=== PATIENT | female | born 1960 | race Caucasian/White ===

== ENCOUNTER 2017-12-31 08:55 | Observation (INO) ==
[2017-12-31] MEDS ORDERED: Morphine Inj 4 MG/ML Vial IV.PUSH ONE (09:39)
[2017-12-31 09:52] LABS: Baso # (Auto) 0.1 th/mm3 (0.0-0.2); Eos # (Auto) 0.5 th/mm3 (0.0-0.4); Eos % (Auto) 4.9 % (0.0-4.0); Hematocrit 45.3 % (35.0-46.0); Hemoglobin 15.3 gm/dL (11.6-15.3); Lymph # (Auto) 1.6 th/mm3 (1.0-4.8); Lymph % (Auto) 15.3 % (9.0-44.0); Mean Corpuscular HGB Conc 33.9 % (32.0-36.0); Mean Corpuscular Hemoglobin 29.7 pg (27.0-34.0); Mean Corpuscular Volume 87.6 fL (80.0-100.0); Mean Platelet Volume 8.4 fL (7.0-11.0); Mono # (Auto) 0.6 th/mm3 (0.0-0.9); Mono % (Auto) 5.6 % (0.0-8.0); Neut # (Auto) 7.8 th/mm3 (1.8-7.7); Neut % (Auto) 73.2 % (16.0-70.0); Platelet Count 362 th/mm3 (150-450); Red Blood Count 5.17 mil/mm3 (4.00-5.30); Red Cell Distribution Width 12.4 % (11.6-17.2); White Blood Count 10.6 th/mm3 (4.0-11.0)
[2017-12-31 10:02] LABS: Chloride 105 meq/L (98-107); Potassium 4.3 meq/L (3.5-5.1); Sodium 142 meq/L (136-145)
[2017-12-31 10:06] LABS: Activated Partial Thrombo Time 27.1 sec (24.3-30.1); Calcium 9.1 mg/dL (8.5-10.1)
--- NOTE | 2017-12-31 10:06 | ED ---
HPI General Chief Complaint: Chest Pain Stated Complaint: chest pain Time Seen by Provider: 12/31/17 09:13 Source: patient Mode of arrival: ambulatory Limitations: no limitations History of Present Illness HPI narrative: She was in complaining of left shoulder humerus region pain radiating towards her left neck. Onset of the symptoms approximately 2 hours ago. MD complaint: chest pain STEMI Alert: No Onset (ago): hour(s) (2) Duration: intermittent Onset: during rest Severity: moderate Severity scale (1-10): 5 Quality: heaviness Pain radiation: none Relieving factors: nothing Exacerbating factors: nothing Context: recent illness Related Data Home Medications Medication Instructions Recorded Confirmed atorvastatin 40 mg PO HS 12/20/17 12/31/17 citalopram 20 mg PO DAILY 12/20/17 12/31/17 lisinopril 10 mg PO DAILY 12/20/17 12/31/17 metformin 500 mg PO BID 12/20/17 12/31/17 [id number]-[id number]-GP-lycopen-lutein 1 tab PO DAILY 12/20/17 12/31/17 [Centrum Silver] omeprazole 20 mg PO DAILY PRN 12/20/17 12/31/17 tramadol 50 mg PO Q6H PRN 12/20/17 12/31/17 Previous Rx's Medication Instructions Recorded atenolol 25 mg PO BID #30 tab 12/20/17 Allergies Allergy/AdvReac Type Severity Reaction Status Date / Time penicillin G Allergy Intermediate HIVES Verified 12/20/17 20:49 Review of Systems ROS: all other systems reviewed are negative PMFSH History History Provided By: Patient Medical History Medical History Depression (Acute) GERD (gastroesophageal reflux disease) (Acute) H/O psoriasis (Acute) Hyperlipidemia (Acute) Hypertension (Acute) Supraventricular tachycardia (Acute) Surgical History Surgical History Abdominal mass (Acute) Nonfunctioning salivary gland (Acute) Family History Family History Father Cardiovascular disease Social History Social History Substance History: No History of Abuse Second Hand Smoke Exposure: No Smoking Status: Current every day smoker Tobacco Type: Cigarettes How Often Do You Have a Drink Containing Alcohol: 4 or more times a week Recent Travel in [facility] within the Last 8 Weeks: No Recent Out of Country Travel within the Last 8 Weeks: No Immunization History Tetanus Immunization: Unsure Hx Influenza Vaccine This Season: No Exam Narrative Exam Narrative: GENERAL: Well-nourished, well-developed patient in no apparent distress. SKIN: Warm and dry. HEAD: Atraumatic. Normocephalic. EYES: Pupils equal and round. No scleral icterus. No injection or drainage. ENT: No nasal bleeding or discharge. Mucous membranes pink and moist. NECK: Trachea midline. No JVD. CARDIOVASCULAR: Regular rate and rhythm. no rubs or gallops RESPIRATORY: No accessory muscle use. Clear to auscultation. Breath sounds equal bilaterally. GASTROINTESTINAL: Abdomen soft, non-tender, nondistended. No rebound or guarding MUSCULOSKELETAL: Extremities without clubbing, cyanosis, or edema. No obvious deformities. NEUROLOGICAL: Awake and alert. No obvious cranial nerve deficits. Motor grossly within normal limits. Five out of 5 muscle strength in the arms and legs. Normal speech. PSYCHIATRIC: Appropriate mood and affect; insight and judgment normal. Course Initial Documented Vital Signs Temperature 98.5 F 12/31/17 09:09 Pulse Rate 66 12/31/17 09:09 Respiratory Rate 18 12/31/17 09:09 Blood Pressure 167/92 H 12/31/17 09:09 Pulse Oximetry 94 L 12/31/17 09:09 Last Documented Vital Signs Temperature 97.9 F 01/01/18 12:00 Pulse Rate 64 01/01/18 18:15 Respiratory Rate 18 01/01/18 18:15 Blood Pressure 177/94 H 01/01/18 18:15 Pulse Oximetry 96 01/01/18 18:15 Medical Decision Making [facility] Narrative Medical Screen Exam Complete: Yes Emergency Medical Condition: Yes Differential Diagnosis Differential Diagnosis: Atypical NM versus pneumonia versus pneumothorax versus pulmonary embolus versus pericardial effusion Medical Records Medical records reviewed: Yes I reviewed the patient's medical records. Lab Data Result diagrams: 12/31/17 09:45 01/01/18 06:00 Lab Results 12/31/17 12/31/17 12/31/17 Range/Units 09:45 09:45 09:45 CBC w Diff Auto diff final WBC 10.6 (4.0-11.0) th/mm3 RBC 5.17 (4.00-5.30) mil/mm3 Hgb 15.3 (11.6-15.3) gm/dL Hct 45.3 (35.0-46.0) % MCV 87.6 (80.0-100.0) fL MCH 29.7 (27.0-34.0) pg MCHC 33.9 (32.0-36.0) % RDW 12.4 (11.6-17.2) % Plt Count 362 (150-450) th/mm3 MPV 8.4 (7.0-11.0) fL Neut % (Auto) 73.2 H (16.0-70.0) % Lymph % (Auto) 15.3 (9.0-44.0) % [place] % (Auto) 5.6 (0.0-8.0) % Eos % (Auto) 4.9 H (0.0-4.0) % Baso % (Auto) 1.0 (0.0-2.0) % Neut # (Auto) 7.8 H (1.8-7.7) th/mm3 Lymph # (Auto) 1.6 (1.0-4.8) th/mm3 [place] # (Auto) 0.6 (0.0-0.9) th/mm3 Eos # (Auto) 0.5 H (0.0-0.4) th/mm3 Baso # (Auto) 0.1 (0.0-0.2) th/mm3 WBC Differential . Differential Comment . PT 10.0 (9.8-11.6) sec INR 1.0 Ratio APTT 27.1 (24.3-30.1) sec Sodium (136-145) meq/L Potassium (3.5-5.1) meq/L Chloride (98-107) meq/L Carbon Dioxide (21.0-32.0) meq/L Anion Gap (5-15) meq/L BUN (7-18) mg/dL Creatinine (0.50-1.00) mg/dL Estimated GFR (>89) mL/min POC Glucose (68-110) mg/dl Random Glucose (74-106) mg/dL Calcium (8.5-10.1) mg/dL Total Bilirubin (0.2-1.0) mg/dL AST (15-37) U/L ALT (10-53) U/L Alkaline Phosphatase (45-117) U/L Total Creatine Kinase (26-192) U/L CK-MB (CK-2) (0.5-3.6) ng/mL Troponin I (0.02-0.05) ng/mL B-Natriuretic Peptide 105 H (0-100) pg/mL Total Protein (6.4-8.2) g/dL Albumin (3.4-5.0) g/dL 12/31/17 12/31/17 12/31/17 Range/Units 09:45 12:57 13:00 CBC w Diff WBC (4.0-11.0) th/mm3 RBC (4.00-5.30) mil/mm3 Hgb (11.6-15.3) gm/dL Hct (35.0-46.0) % MCV (80.0-100.0) fL MCH (27.0-34.0) pg MCHC (32.0-36.0) % RDW (11.6-17.2) % Plt Count (150-450) th/mm3 MPV (7.0-11.0) fL Neut % (Auto) (16.0-70.0) % Lymph % (Auto) (9.0-44.0) % [place] % (Auto) (0.0-8.0) % Eos % (Auto) (0.0-4.0) % Baso % (Auto) (0.0-2.0) % Neut # (Auto) (1.8-7.7) th/mm3 Lymph # (Auto) (1.0-4.8) th/mm3 [place] # (Auto) (0.0-0.9) th/mm3 Eos # (Auto) (0.0-0.4) th/mm3 Baso # (Auto) (0.0-0.2) th/mm3 WBC Differential Differential Comment PT (9.8-11.6) sec INR Ratio APTT (24.3-30.1) sec Sodium 142 (136-145) meq/L Potassium 4.3 (3.5-5.1) meq/L Chloride 105 (98-107) meq/L Carbon Dioxide 29.6 (21.0-32.0) meq/L Anion Gap 7 (5-15) meq/L BUN 12 (7-18) mg/dL Creatinine 0.67 (0.50-1.00) mg/dL Estimated GFR Greater than 89 (>89) mL/min POC Glucose 129 H (68-110) mg/dl Random Glucose 136 H (74-106) mg/dL Calcium 9.1 (8.5-10.1) mg/dL Total Bilirubin 0.4 (0.2-1.0) mg/dL AST 20 (15-37) U/L ALT 29 (10-53) U/L Alkaline Phosphatase 82 (45-117) U/L Total Creatine Kinase 152 122 (26-192) U/L CK-MB (CK-2) 1.5 (0.5-3.6) ng/mL Troponin I Less than 0.02 L Less than 0.02 L (0.02-0.05) ng/mL B-Natriuretic Peptide (0-100) pg/mL Total Protein 7.3 (6.4-8.2) g/dL Albumin 3.8 (3.4-5.0) g/dL 12/31/17 12/31/17 12/31/17 Range/Units 16:04 16:33 20:42 CBC w Diff WBC (4.0-11.0) th/mm3 RBC (4.00-5.30) mil/mm3 Hgb (11.6-15.3) gm/dL Hct (35.0-46.0) % MCV (80.0-100.0) fL MCH (27.0-34.0) pg MCHC (32.0-36.0) % RDW (11.6-17.2) % Plt Count (150-450) th/mm3 MPV (7.0-11.0) fL Neut % (Auto) (16.0-70.0) % Lymph % (Auto) (9.0-44.0) % [place] % (Auto) (0.0-8.0) % Eos % (Auto) (0.0-4.0) % Baso % (Auto) (0.0-2.0) % Neut # (Auto) (1.8-7.7) th/mm3 Lymph # (Auto) (1.0-4.8) th/mm3 [place] # (Auto) (0.0-0.9) th/mm3 Eos # (Auto) (0.0-0.4) th/mm3 Baso # (Auto) (0.0-0.2) th/mm3 WBC Differential Differential Comment PT (9.8-11.6) sec INR Ratio APTT (24.3-30.1) sec Sodium (136-145) meq/L Potassium (3.5-5.1) meq/L Chloride (98-107) meq/L Carbon Dioxide (21.0-32.0) meq/L Anion Gap (5-15) meq/L BUN (7-18) mg/dL Creatinine (0.50-1.00) mg/dL Estimated GFR (>89) mL/min POC Glucose 94 87 (68-110) mg/dl Random Glucose (74-106) mg/dL Calcium (8.5-10.1) mg/dL Total Bilirubin (0.2-1.0) mg/dL AST (15-37) U/L ALT (10-53) U/L Alkaline Phosphatase (45-117) U/L Total Creatine Kinase 112 (26-192) U/L CK-MB (CK-2) (0.5-3.6) ng/mL Troponin I Less than 0.02 L (0.02-0.05) ng/mL B-Natriuretic Peptide (0-100) pg/mL Total Protein (6.4-8.2) g/dL Albumin (3.4-5.0) g/dL 01/01/18 01/01/18 01/01/18 Range/Units 06:00 08:04 11:20 CBC w Diff WBC (4.0-11.0) th/mm3 RBC (4.00-5.30) mil/mm3 Hgb (11.6-15.3) gm/dL Hct (35.0-46.0) % MCV (80.0-100.0) fL MCH (27.0-34.0) pg MCHC (32.0-36.0) % RDW (11.6-17.2) % Plt Count (150-450) th/mm3 MPV (7.0-11.0) fL Neut % (Auto) (16.0-70.0) % Lymph % (Auto) (9.0-44.0) % [place] % (Auto) (0.0-8.0) % Eos % (Auto) (0.0-4.0) % Baso % (Auto) (0.0-2.0) % Neut # (Auto) (1.8-7.7) th/mm3 Lymph # (Auto) (1.0-4.8) th/mm3 [place] # (Auto) (0.0-0.9) th/mm3 Eos # (Auto) (0.0-0.4) th/mm3 Baso # (Auto) (0.0-0.2) th/mm3 WBC Differential Differential Comment PT (9.8-11.6) sec INR Ratio APTT (24.3-30.1) sec Sodium 142 (136-145) meq/L Potassium 3.8 (3.5-5.1) meq/L Chloride 106 (98-107) meq/L Carbon Dioxide 27.3 (21.0-32.0) meq/L Anion Gap 9 (5-15) meq/L BUN 7 (7-18) mg/dL Creatinine 0.53 (0.50-1.00) mg/dL Estimated GFR Greater than 89 (>89) mL/min POC Glucose 151 H 124 H (68-110) mg/dl Random Glucose 128 H (74-106) mg/dL Calcium 8.3 L D (8.5-10.1) mg/dL Total Bilirubin (0.2-1.0) mg/dL AST (15-37) U/L ALT (10-53) U/L Alkaline Phosphatase (45-117) U/L Total Creatine Kinase (26-192) U/L CK-MB (CK-2) (0.5-3.6) ng/mL Troponin I (0.02-0.05) ng/mL B-Natriuretic Peptide (0-100) pg/mL Total Protein (6.4-8.2) g/dL Albumin (3.4-5.0) g/dL 01/01/18 Range/Units 17:03 CBC w Diff WBC (4.0-11.0) th/mm3 RBC (4.00-5.30) mil/mm3 Hgb (11.6-15.3) gm/dL Hct (35.0-46.0) % MCV (80.0-100.0) fL MCH (27.0-34.0) pg MCHC (32.0-36.0) % RDW (11.6-17.2) % Plt Count (150-450) th/mm3 MPV (7.0-11.0) fL Neut % (Auto) (16.0-70.0) % Lymph % (Auto) (9.0-44.0) % [place] % (Auto) (0.0-8.0) % Eos % (Auto) (0.0-4.0) % Baso % (Auto) (0.0-2.0) % Neut # (Auto) (1.8-7.7) th/mm3 Lymph # (Auto) (1.0-4.8) th/mm3 [place] # (Auto) (0.0-0.9) th/mm3 Eos # (Auto) (0.0-0.4) th/mm3 Baso # (Auto) (0.0-0.2) th/mm3 WBC Differential Differential Comment PT (9.8-11.6) sec INR Ratio APTT (24.3-30.1) sec Sodium (136-145) meq/L Potassium (3.5-5.1) meq/L Chloride (98-107) meq/L Carbon Dioxide (21.0-32.0) meq/L Anion Gap (5-15) meq/L BUN (7-18) mg/dL Creatinine (0.50-1.00) mg/dL Estimated GFR (>89) mL/min POC Glucose 90 (68-110) mg/dl Random Glucose (74-106) mg/dL Calcium (8.5-10.1) mg/dL Total Bilirubin (0.2-1.0) mg/dL AST (15-37) U/L ALT (10-53) U/L Alkaline Phosphatase (45-117) U/L Total Creatine Kinase (26-192) U/L CK-MB (CK-2) (0.5-3.6) ng/mL Troponin I (0.02-0.05) ng/mL B-Natriuretic Peptide (0-100) pg/mL Total Protein (6.4-8.2) g/dL Albumin (3.4-5.0) g/dL Imaging Data Attestation: I personally reviewed and interpreted this imaging study as follows : Radiologist's impression: Chest CTA 12/31/17 09:39 CONCLUSION: 1. No evidence of pulmonary embolism. 2. Focal atelectasis within the lingula of the left upper lobe. 3. Coronary artery calcifications. 4. Hepatomegaly. Chest X-Ray 12/31/17 09:39 CONCLUSION: 1. No acute abnormality or significant interval change. Myocardial Perfusion Scan Nuc Med 01/01/18 00:00 CONCLUSION: 1. Negative examination. ECG Data EKG Prior to Arrival: No Attestation: I personally reviewed and interpreted this ECG as follows: Prior ECG tracings: not available for review Interpretation: Sinus bradycardia, 54 bpm, no evidence of any prolonged intervals nor any bundle branch block. Patient has benign early re-pole noted, no evidence of any ST elevation NM pattern. Discharge Plan Discharge Disposition Patient Disposition: 30 Still Patient Discharge Condition Condition: Stable Discharge Order Discharge Orders: Discharge Order (Routine); Ordered 01/01/18 Ordered By: Triny Ch Discharge Details Anticipated Discharge Date: 01/01/18 Diagnosis: Chest pain, rule out acute myocardial infarction Physicians Team ED Provider: Travis Horton Primary Care Provider: Solomon Kessler Attending Provider: Sancho Elizalde Interventions Interventions: ED Discharge Assessment Last Done: 12/31/17 12:25 Status ED Status: Left Department Discharge Information Discharge Date/Time: 12/31/17 12:27
[2017-12-31 10:07] LABS: Albumin 3.8 g/dL (3.4-5.0); Anion Gap 7 meq/L (5-15); Blood Urea Nitrogen 12 mg/dL (7-18); Carbon Dioxide 29.6 meq/L (21.0-32.0); Glucose,Random 136 mg/dL (74-106)
[2017-12-31 10:10] LABS: Aspartate Aminotransferase 20 U/L (15-37); Glomerular Filtration Rate Greater Than 89 mL/min (>89)
[2017-12-31 10:12] LABS: Total Protein 7.3 g/dL (6.4-8.2)
[2017-12-31 10:13] LABS: Alkaline Phosphatase 82 U/L (45-117); Creatine Kinase 152 U/L (26-192)
[2017-12-31 10:15] LABS: Alanine Aminotransferase 29 U/L (10-53)
[2017-12-31 10:25] LABS: Creatine Kinase MB 1.5 ng/mL (0.5-3.6)
[2017-12-31] MEDS ORDERED: Acetaminophen 500 MG Tablet PO PRN (11:50)
[2017-12-31] MEDS ORDERED: Dextrose 50% in Water 50 ML Vial IV.PUSH PRN (11:54)
[2017-12-31] MEDS ORDERED: Morphine Sulfate Inj 2 MG/ML Vial IV.PUSH PRN (12:15)
[2017-12-31] MEDS ORDERED: Pantoprazole Sodium 20 MG DR Tablet PO PRN (12:15)
[2017-12-31] MEDS: Aspirin 325 MG Tablet PO SCH (12:58)
[2017-12-31] MEDS: Sod Chloride 0.9% Inj 1,000 ML IV.CONT SCH ×2 (12:59→22:03)
[2017-12-31] MEDS: Insulin NovoLOG Aspart Correctional Sugar Inj SQ SCH ×3 (12:59→20:45)
[2017-12-31 13:53] LABS: Creatine Kinase 122 U/L (26-192)
[2017-12-31 16:28] LABS: Creatine Kinase 112 U/L (26-192)
--- NOTE | 2017-12-31 20:13 | ECG ---
Date Performed: 12/31/2017 Time Performed: 09:03:07 PTAGE: 57 years EKG: SINUS BRADYCARDIA BORDERLINE ECG PREVIOUS TRACING : 12/20/2017 20.37 Compared to previous tracing, rate slower DOCTOR: Allan Lee Interpretating Date/Time 12/31/2017 20:12:46
[2017-12-31] MEDS ORDERED: Atenolol 25 MG Tablet PO SCH (21:00)
[2018-01-01 07:21] LABS: Chloride 106 meq/L (98-107); Potassium 3.8 meq/L (3.5-5.1); Sodium 142 meq/L (136-145)
[2018-01-01 07:27] LABS: Calcium 8.3 mg/dL (8.5-10.1)
[2018-01-01 07:28] LABS: Anion Gap 9 meq/L (5-15); Blood Urea Nitrogen 7 mg/dL (7-18); Carbon Dioxide 27.3 meq/L (21.0-32.0); Glucose,Random 128 mg/dL (74-106)
[2018-01-01 07:31] LABS: Glomerular Filtration Rate Greater Than 89 mL/min (>89)
[2018-01-01] MEDS ORDERED: Citalopram 20 MG Tablet PO SCH (09:00)
[2018-01-01] MEDS ORDERED: Lisinopril 10 MG Tablet PO SCH (09:00)
[2018-01-01] MEDS: Aspirin 325 MG Tablet PO SCH (09:56)
[2018-01-01] MEDS: Sod Chloride 0.9% Inj 1,000 ML IV.CONT SCH ×2 (09:58→18:00)
[2018-01-01] MEDS: Insulin NovoLOG Aspart Correctional Sugar Inj SQ SCH ×3 (09:59→17:11)
[2018-01-01] MEDS ORDERED: Regadenoson Inj 0.4 MG/5 ML Syringe IV.PUSH ONE (12:24)
--- NOTE | 2018-01-01 14:09 | TR ---
Date Performed: 01/01/2018 Time Performed: 10:23:05 DOCTOR: Salomón Alexis DRUG LIST: CLINICAL HISTORY: REASON FOR TEST: REASON FOR ENDING: OBSERVATION: CONCLUSION: Kofi protocol attempted and stopped secondary to shortness of breath and patient re questing to stop. Patient has reproducable chest discomfort. Poor exercise tolerance. No ST changes s een, occasional PVCs noted. Heart rate has returned to baseline. Pain has diminished. BP elevated 206 /90 during recovery.Maximum XS=680 % Target HR Achieved=80.0% Maximum BP=N/A Total Exercise Time=1:40 COMMENTS: Non- diagnostic stress test due to failure to reach target heart rate
--- NOTE | 2018-01-01 14:11 | ECG ---
Date Performed: 12/31/2017 Time Performed: 16:22:52 PTAGE: 57 years EKG: SINUS BRADYCARDIA BORDERLINE ECG PREVIOUS TRACING : 12/31/2017 13.13 Since previous tracing, no significant change noted DOCTOR: Salomón Alexis Interpretating Date/Time 01/01/2018 14:10:03
--- NOTE | 2018-01-01 14:12 | ECG ---
Date Performed: 12/31/2017 Time Performed: 13:13:35 PTAGE: 57 years EKG: BORDERLINE ECG PREVIOUS TRACING : 12/31/2017 09.03 Since previous tracing, no significant change noted DOCTOR: Salomón Alexis Interpretating Date/Time 01/01/2018 14:10:53
[2018-01-01] MEDS ORDERED: Lisinopril 10 MG Tablet PO ONE (15:19)
[2018-01-01] MEDS ORDERED: Atenolol 25 MG Tablet PO SCH (15:30)
== END 2018-01-01 18:30 | disposition home or self-care (01) ==
LOC: PHEDA 08:55 → PHED 08:55 → PH3 12:27
PROVIDERS: ADMIT Internal Medicine; ATTEND Internal Medicine
DX: Z79.4 Long term (current) use of insulin; Z88.0 Allergy status to penicillin; F32.9 Major depressive disorder, single episode, unspecified; I25.10 Atherosclerotic heart disease of native coronary artery without angina pectoris; J98.11 Atelectasis; E11.9 Type 2 diabetes mellitus without complications; I10 Essential (primary) hypertension; Z82.49 Family history of ischemic heart disease and other diseases of the circulatory system; R07.9 Chest pain, unspecified; E78.5 Hyperlipidemia, unspecified; K21.9 Gastro-esophageal reflux disease without esophagitis; F17.210 Nicotine dependence, cigarettes, uncomplicated